=== PATIENT | male | born 1945 | race Caucasian/White ===

== ENCOUNTER 2018-01-24 17:55 | Emergency (ER) | payer OTHER ==
[~2018-01-24] VITALS: Ht 175.3 cm; Wt 109.0 kg
[2018-01-24] MEDS ORDERED: ROSU10TA PO (18:08)
[2018-01-24] MEDS ORDERED: NITR0.4T49 SL (18:08)
[2018-01-24] MEDS ORDERED: sotalol (18:08)
[2018-01-24] MEDS ORDERED: APIX2.5T PO (18:08)
[2018-01-24] MEDS ORDERED: PRAS10TA6 PO (18:08)
[2018-01-24] MEDS ORDERED: ESOM40SU PO (18:08)
[2018-01-24] MEDS ORDERED: FURO-151 PO (18:08)
[2018-01-24] MEDS ORDERED: HYDROCODONE/ACETAMINOPHEN 5/325MG TABLET PO ONE (18:45)
[2018-01-24 19:31] LABS: BASOPHILS % 0.2 % (0.0-2.0); HEMATOCRIT. 37.5 % (42.0-52.0); HEMOGLOBIN. 12.4 g/dL (14.0-18.0); LYMPHOCYTES % 12.3 % (20.0-50.0); MEAN CORPUSCULAR HEMOGLOBIN 28.1 pg (28.0-32.0); MEAN CORPUSCULAR VOLUME 84.8 fL (80.0-94.0); MEAN PLATELET VOLUME 8.7 fl (7.4-10.4); MONOCYTES % 3.6 % (2.0-8.0); NEUTROPHILS % 83.9 % (40.0-76.0); PLATELET 180 x1000/uL (130-400); RED BLOOD CELL COUNT 4.43 mill/uL (4.7-6.1); RED CELL DISTRIBUTION WIDTH 15.6 % (11.6-14.6)
[2018-01-24 19:36] LABS: CHLORIDE 98 mEq/L (98-107)
[2018-01-24 19:40] LABS: D-DIMER 0.35 mg/L FEU (<0.50); INR 1.2; PROTHROMBIN TIME 11.8 sec (9.1-11.1)
[2018-01-24 20:30] VITALS: BP 126/75
== END 2018-01-24 23:20 | disposition home or self-care (01) ==
LOC: ER 23:09
DX: M10.071 Idiopathic gout, right ankle and foot (principal); R73.9 Hyperglycemia, unspecified; E86.0 Dehydration; M79.604 Pain in right leg; M19.90 Unspecified osteoarthritis, unspecified site; I11.9 Hypertensive heart disease without heart failure; I48.91 Unspecified atrial fibrillation; Z79.01 Long term (current) use of anticoagulants; Z88.6 Allergy status to analgesic agent; Z90.49 Acquired absence of other specified parts of digestive tract; Z98.84 Bariatric surgery status
CPT/HCPCS: 36415; 73610; 80053; 84550; 85025; 85379; 85610; 85651; 86140; 93971; 99285